=== PATIENT | female | born 1960 | race Caucasian/White ===

== ENCOUNTER 2018-10-05 18:00 | Emergency (ER) | payer OTHER, MEDICARE ==
[~2018-10-05] VITALS: Ht 160 cm; Wt 63.5 kg
[~2018-10-05 18:00] MED LIST: ASPIR 8181 MG PO; CLEOCIN HCL150 MG PO; KEFLEX500 MG PO; SYNTHROID150 MCG PO; ULTRAM50 MG PO
--- OUTSIDE RECORDS SUMMARY | 2018-10-05 18:03 | XMS REPORT | Clinical Summary ---
Author Author [facility] Address Unknown Phone Unavailable Care Team Providers Care Clay Modeler Name Role Phone Fiona Hadley MD PCP Allergies Comments Active Allergy Reactions Severity Noted Date Codeine 11/23/2017 Sulfa (Sulfonamide 11/23/2017 Antibiotics) Vancomycin 11/23/2017 Medications End Date Status Medication Sig Dispensed Refills Start Date Active cyclobenzaprine Take 5 mg by 0 (FLEXERIL) 5 mg tablet mouth as needed for muscle spasms. Active levothyroxine (SYNTHROID) Take 112 mcg 0 112 mcg tablet by mouth every morning. Active amoxicillin (AMOXIL) 500 Take 500 mg 0 MG capsule by mouth 3 (three) times a day. Active estradiol (ESTRACE) 0.5 Take 0.5 mg 0 MG tablet by mouth daily. Active linaclotide (LINZESS) 145 Take 1 30 capsule 11 mcg capsule capsule (145 8 mcg total) by mouth daily before breakfast. 01/29/2019 Active omeprazole (PriLOSEC) 20 Take 1 30 capsule 5 MG capsule capsule (20 8 mg total) by mouth daily. 01/29/2018 Discontinued pantoprazole (PROTONIX) Take 20 mg by 0 20 MG EC tablet mouth daily. 11/23/2017 Discontinued lubiprostone (AMITIZA) 8 Take 8 mcg by 0 MCG capsule mouth 2 (two) times a day with meals. 11/27/2017 Discontinued linaclotide (LINZESS) 145 Take 1 8 capsule 0 201 mcg capsule capsule (145 8 mcg total) by mouth daily before breakfast. 01/29/2018 Discontinued linaclotide (LINZESS) 145 Take 1 30 capsule 11 201 mcg capsule capsule (145 8 mcg total) by mouth daily before breakfast. 01/29/2018 Discontinued omeprazole (PriLOSEC) 40 TK 1 C PO QD 3 01/04/201 MG capsule 8 Active Problems Not on file Encounters Care Team Description Date Type Specialty Miriam Beard MD Outside GI records 09/28/2018 Documentation Gastroenterology Miriam Beard MD Kooi, Kari, KARLENE Bloating 02/27/2018 Consult Weight Management Miriam Beard MD Chronic idiopathic constipation (Primary Dx); Bloating; Polyp of colon, unspecified part of colon, unspecified type; Pernicious anemia; Irritable bowel syndrome with constipation 01/29/2018 Office Visit Gastroenterology Naomi Sheth MA Bloating (Primary Dx) 01/29/2018 Orders Only Gastroenterology Miriam Beard MD 01/02/2018 Telephone GastroenterMiriam Ruth MD 12/13/2017 Telephone Gastroenterology Claudine Ballesteros LVN 12/04/2017 Telephone Miriam Whiting MD 11/27/2017 Lab Lab Miriam Beard MD EGD 11/27/2017 Documentation Miriam Whiting MD 11/27/2017 Orders Only Gastroenterology Naomi Sheth MA 11/24/2017 Telephone Gastroenterology Miriam Beard MD 11/24/2017 Telephone Gastroenterology Miriam Beard MD Bloating (Primary Dx); Chronic idiopathic constipation; Polyp of colon, unspecified part of colon, unspecified type; Irritable bowel syndrome with constipation; Pernicious anemia 11/23/2017 Office Visit Gastroenterology after 10/04/2017 Family History Medical History Relation Name Comments Pancreatitis Brother Cirrhosis Mother Colon polyps Mother Irritable bowel syndrome Mother Liver disease Mother Colon cancer Neg Hx Relation Name Status Comments Brother Mother Social History Date Tobacco Use Types Packs/Day Years Used Never Smoker Smokeless Tobacco: Never Used Alcohol Use Drinks/Week oz/Week Comments No Sex Assigned at Date Recorded Not on file Industry Job Start Date Occupation Not on file Not on file Not on file Travel End Travel History Travel Start No recent travel history available. Last Filed Vital Signs Time Taken Vital Sign Reading 01/29/2018 2:21 PM CDT Blood Pressure 123/78 01/29/2018 2:21 PM CDT Pulse 87 01/29/2018 2:21 PM CDT Temperature 36.7 C (98 F) - Respiratory Rate - - Oxygen Saturation - - Inhaled Oxygen - Concentration 02/27/2018 11:03 AM CDT Weight 66.9 kg (147 lb 8 oz) 02/27/2018 11:03 AM CDT Height 160 cm (5' 3") 02/27/2018 11:03 AM CDT Body Mass Index 26.13 Plan of Treatment Health Maintenance Due Date Last Done Comments CERVICAL CANCER SCREENING 1981 BREAST CANCER SCREENING 2010 COLON CANCER SCREENING 2010 SHINGLES VACCINES (#1) 2010 INFLUENZA VACCINE 01/17/2019 Procedures Comments Procedure Name Priority Date/Time Associated Diagnosis SURGICAL PATHOLOGY Routine 11/27/2017 REQUEST 12:19 PM CDT after 10/04/2017 Results * Surgical pathology request (11/27/2017 12:19 PM CDT) [facility] DEPARTMENT OF PATHOLOGY AND GENOMIC MEDICINE Surgical pathology report See link below for PDF Lab [facility] DEPARTMENT OF Report PATHOLOGY AND GENOMIC MEDICINE Result status This is Final Report to [facility] DEPARTMENT OF [id number] PATHOLOGY AND GENOMIC MEDICINE Performing Organization Address City/State/Zipcode Phone Number [facility] DEPARTMENT OF [address] [place] [address] PATHOLOGY AND GENOMIC MEDICINE after 10/04/2017 Insurance Payer Benefit Subscriber ID Type Phone Address Plan / Group CIGNA CIGNA OPEN xxxxxxxxxxx HMO ACCESS/NET WORK MEDICARE MEDICARE xxxxxxxxxx Medicare [place], [place] PART A AND B Advance Directives Patient has advance care planning documents on file. For more information, isamar parker contact: Tommie Barrera [address] [place] [address]
--- OUTSIDE RECORDS SUMMARY | 2018-10-05 18:03 | XMS REPORT | Clinical Summary ---
Author Author [facility] Organization [facility] Address Unknown Phone Unavailable Care Team Providers Care Supervisor Throwing Department Name Role Phone Sharpless PCP Allergies Not on File Medications Not on file Active Problems Not on file Social History Date Tobacco Use Types Packs/Day Years Used Never Assessed Sex Assigned at Date Recorded Not on file Industry Job Start Date Occupation Not on file Not on file Not on file Travel End Travel History Travel Start No recent travel history available. Last Filed Vital Signs Not on file Plan of Treatment Not on file Results Not on fileafter 10/04/2017 Insurance Payer Benefit Subscriber ID Type Phone Address Plan / Group MEDICARE MEDICARE A xxxxxxxxxx Medicare B CIGNA - [place] CARE CIGNA xxxxxxxxxxx HMO/POS HMO/POS/OP EN ACCESS MEDICAID - MEDICAID [place] MEDICAID xxxxxxxxx Medicaid CARE [facility] Contracted HEALTH CHOICE
--- OUTSIDE RECORDS SUMMARY | 2018-10-05 18:03 | XMS REPORT ---
[facility] Address Unknown Phone Unavailable Care Team Providers Care Strategic Planning Analyst Name Role Phone Unavailable Unavailable Payers Payer Name Policy Type Policy Number Effective Date Expiration Date Problems This patient has no known problems. Allergies, Adverse Reactions, Alerts Allergy Name Allergy Type Status Severity Reaction(s) Onset Date Inactive Date Treating Clinician Comments Sulfa (Sulfonamide Antibiotics) DA Active 2018-01-19 00:00:00 codeine DA Active SV 2018-01-19 00:00:00 minocycline DA Active SV 2018-01-19 00:00:00 Medications This patient has no known medications. 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 A physiologic amount of joint fluid is present without evidence for a loose body. COMMENT: COMPARISON: No prior exams available. Scans were performed in the sagittal, axial and coronal planes utilizing T1, spin density with fat saturation and T2- weighted pulse sequences. Bony and hyaline cartilage abnormality is present as noted. There is degenerative signal in the posterior horn the medial meniscus without evidence for tear. The anterior horn the medial meniscus and the lateral meniscus are within normal limits in appearance. No abnormality is seen involving the anterior or posterior cruciate or medial or lateral collateral ligaments. There is distal quadriceps tendinosis without a tear. The patellar tendon is within normal limits in appearance. at 0803 Reported and signed by: Ronaldo Serrato MD CC: Brian Ascencio MD Technologist: Patricia Bird(R) Transcribed D/ (08) [facility] NAME: JOY MORIN [address] [facility] PHYS: [email or web address] - Brian Ascencio : 1960 AGE: 57 SEX: F [place] [phone] LOC: Y.MRI PHONE #: [phone] EXAM DATE: 08/10/2018 STATUS: DEP CLI FAX #: [phone] RAD #: D/C DT PAGE 1 Signed Report Patient Name: JOY MORIN RUDDY Unit No: [id number] EXAMS: CPT CODE: [id number] MRI LW JNT W/[place] [address] <Continued> Orig Print D/T: S: 0 08/13/2018 (0807) [facility] NAME: JOY MORIN [address] [facility] PHYS: [email or web address] - Brian Ascencio : 1960 AGE: 57 SEX: F [place] [phone] LOC: Y.MRI PHONE #: EXAM DATE: 08/10/2018 STATUS: DEP CLI FAX #: [phone] RAD #: D/C DT PAGE 2 Signed Report
[2018-10-05] MEDS ORDERED: NEOMYCIN/POLYMYX/BACITR OINT 0.9 GM PKT ONE (19:36)
[2018-10-05] MEDS ORDERED: TETANUS/DIPHTHERIA TOX ADULT 0.5 ML SYR ONE (19:37)
[2018-10-05] MEDS ORDERED: TETANUS/DIPHTHERIA TOX ADULT 0.5 ML SYR IM NR (19:45)
[2018-10-05] MEDS ORDERED: NEOMYCIN/POLYMYX/BACITR OINT 0.9 GM PKT TOP STA (19:46)
[2018-10-05] MEDS ORDERED: LIDOCAINE 1% W/EPINEPHRINE 20 ML VIAL ONE (19:46)
[2018-10-05] MEDS ORDERED: LIDOCAINE 2%/ EPINEPHRINE 20ML MDV INJ STA (19:46)
[2018-10-05] MEDS ORDERED: LIDOCAINE 1% W/EPINEPHRINE 20 ML VIAL INJ STA (19:47)
--- NOTE | 2018-10-05 20:01 | Diagnostic Imaging Report ---
History:Hit the head with pain. Comparison studies: CT head report 10/04/2013 Technique: Axial images were obtained from the skull base to the vertex. Coronal and sagittal reconstructions obtained from the axial data. Dose modulation, iterative reconstruction, and/or weight based adjustment of the mA/kV was utilized to reduce the radiation dose to as low as reasonably achievable. Findings: Scalp/skull: No abnormalities. No fractures, blastic or lytic lesions. Extra-axial spaces: No masses. No fluid collections. Brain sulci: Appropriate for age. Ventricles: Normal in size and configuration. No hydrocephalus. Parenchyma: No abnormal densities. No masses, hemorrhage, acute or chronic cortical vascular insults. Sellar/suprasellar region: No abnormalities Craniocervical junction: Patent foramen magnum. No Chiari one malformation. IMPRESSION: No abnormalities . Signed by: DR Edi Molina M.D. on 10/05/2018 7:58 PM
[2018-10-05] MEDS ORDERED: IBUPROFEN 600 MG TAB PO STA (20:06)
== END 2018-10-05 20:42 | disposition home or self-care (01) ==
LOC: ER 18:00
DX: S01.01XA Laceration without foreign body of scalp, initial encounter (principal); W20.8XXA Other cause of strike by thrown, projected or falling object, initial encounter; Y92.89 Other specified places as the place of occurrence of the external cause; E03.9 Hypothyroidism, unspecified; Z79.82 Long term (current) use of aspirin; Z23 Encounter for immunization
CPT/HCPCS: 70450; 90471; 90714; 99284

== ENCOUNTER 2020-02-18 08:45 | Emergency (ER) | payer OTHER, MEDICARE ==
[~2020-02-18] VITALS: Ht 160 cm; Wt 63.0 kg
--- OUTSIDE RECORDS SUMMARY | 2020-02-18 08:59 | XMS REPORT | Clinical Summary ---
Author Author [facility] Organization [facility] Address Unknown Phone Unavailable Care Team Providers Care Puff Ironer Name Role Phone Fiona Hadley MD PCP Allergies Comments Active Allergy Reactions Severity Noted Date Codeine 11/23/2017 Sulfa (Sulfonamide 11/23/2017 Antibiotics) Vancomycin 11/23/2017 Medications End Date Status Medication Sig Dispensed Refills Start Date Active cyclobenzaprine Take 5 mg by 0 (FLEXERIL) 5 mg tablet mouth as needed for muscle spasms. Active estradiol (ESTRACE) 0.5 Take 0.5 mg 0 MG tablet by mouth daily. Active SYNTHROID 150 mcg tablet TK 1 T PO QAM 1 12/17 9 Active cyanocobalamin, vitamin Inject 1,000 0 B-12, 1,000 mcg/mL kit mcg as directed every 28 days. Active linaCLOtide (LINZESS) 145 Linzess 145 90 capsule 3 mcg capsule mcg capsule 9 01/21/2020 sucralfate (CARAFATE) 1 Take 1 tablet 120 tablet 3 gram tablet (1 g total) 9 by mouth 4 (four) times a day. Active Problems Not on file Encounters Care Team Description Date Type Specialty Miriam Beard MD Kooi, Kari, KARLENE Irritable bowel syndrome with constipati on 03/25/2019 Consult Weight Management after 02/17/2019 Family History Medical History Relation Name Comments Pancreatitis Brother Cirrhosis Mother Colon polyps Mother Irritable bowel syndrome Mother Liver disease Mother Colon cancer Neg Hx Relation Name Status Comments Brother Mother Social History Date Tobacco Use Types Packs/Day Years Used Never Smoker Smokeless Tobacco: Never Used Drinks/Week oz/Week Comments Alcohol Use No Sex Assigned at Date Recorded Not on file Industry Job Start Date Occupation Not on file Not on file Not on file Travel End Travel History Travel Start No recent travel history available. Last Filed Vital Signs Reading Time Taken Comments Vital Sign - - Blood Pressure - - Pulse - - Temperature - - Respiratory Rate - - Oxygen Saturation - - Inhaled Oxygen Concentration 68.9 kg (152 lb) 03/25/2019 2:02 PM CDT Weight 160 cm (5' 3") 03/25/2019 2:02 PM CDT Height 26.93 03/25/2019 2:02 PM CDT Body Mass Index Plan of Treatment Health Maintenance Due Date Last Done Comments CERVICAL CANCER SCREENING 1981 BREAST CANCER SCREENING 2010 COLONOSCOPY SCREENING 2010 SHINGLES VACCINES (#1) 2010 INFLUENZA VACCINE 03/19/2020 Results Not on fileafter 02/17/2019 Insurance Type Payer Benefit Subscriber ID Effective Phone Address Plan / Dates Group HMO CIGNA CIGNA OPEN xxxxxxxxxxx 2003- ACCESS/NET Present WORK Medicare MEDICARE MEDICARE xxxxxxxxxx 2002- [place], PART A AND Present [place] B Advance Directives For more information, please contact: [phone] Patient Planning And Analysis Manager Explanation Type Date Recorded Advance Directives, Living Will and Medical Power of Museum Security Chief
[2020-02-18] MEDS ORDERED: CLINDAMYCIN PHOS 600 MG/ 4 ML VIAL IM NR (09:00)
--- OUTSIDE RECORDS SUMMARY | 2020-02-18 09:00 | XMS REPORT | Continuity of Care Document ---
Author Author [facility] t Organization [facility] Address [address] [place] [id number] Phone Unavailable Care Team Providers Care Stove Refinisher Name Role Phone NO, PCP PCP Unavailable Yuriy Beard MD Attphys Yasmin Starr RD Attphys Unavailable Blanca DÍAZ, Rashad Attphys Saud CAMEJO Attphys Unavailable Payers Payer Name Policy Type Policy Number Effective Date Expiration Date S roger CIGFIDENCIO OPEN ACCESS/NETWORKxxxxxxxxxxx1-[facility] [place]00 [facility] MEDICAREMEDICARE PART A AND Piezmxiypcv2002-[place] 2002 00:00:00 [facility] [id number] 2018 00:00:00 [facility] Cigna Hmo [id number] 2018 00:00:00 [facility] Medicare A & B [id number] 2002 00:00:00 [facility] Problems This patient has no known problems. Allergies, Adverse Reactions, Alerts Allergy Name Allergy Type Status Severity Reaction(s) Onset Date Inacti ve Date Treating Clinician Comments Source Sulfa (Sulfonamide Antibiotics) Allergy to Substance Active Mild 2018-10-05 00:00:00 [facility] Vancomycin Allergy to Substance Active Mild HEAD ITCHING 2018-10-05 00:00:00 [facility] Sulfa (Sulfonamide Antibiotics) DA Active SV 2018-01-19 00 :00:00 [facility] codeine DA Active SV 2018-01-19 00:00:00 [facility] minocycline DA Active SV 2018-01-19 00:00:00 [facility] Codeine Propensity to adverse reactions to drug Active 2017-11-23 00:00:00 Tommie Barrera Sulfa (Sulfonamide Antibiotics) Propensity to adverse reactions to drug Active 2017-11-23 00:00:00 Mehnaz Barrera Vancomycin Propensity to adverse reactions to drug Active 2017-11-23 00:00:00 Tommie Cardenas t Codeine Allergy to Substance Active 2016-11-07 00:00:00 [facility] Family History Family Member Diagnosis Comments Start Date Stop Date Source Natural brother Pancreatitis Tommie Barrera Natural mother Cirrhosis [facility] thodist Natural mother Colon polyps Tommie Barrera Natural mother Irritable bowel syndrome Tommie Barrera Natural mother Liver disease Tommie Barrera Family member Colon cancer [facility] ethodist Social History Social Habit Start Date Stop Date Quantity Comments Source Sex Assigned At Danilo gould Bruce Alcohol intake 2019-01-17 00:00:00 2019-01-17 00:00:00 Current non-drinker of alcohol (finding) Tommie Barrera Smoking Status Start Date Stop Date Source Never smoker Tommie nunez Medications Ordered Medication Name Filled Medication Name Start Date Stop Da te Current Medication? Ordering Clinician Indication Dosage Frequency Signature (SIG) Comments Components Source sucralfate (CARAFATE) 1 gram tablet 2019-01-21 00:00:0 0 2020-01-21 23:59:00 No 1g Q.25D Take 1 tablet (1 g total) by mouth 4 (fo ur) times a day. Tommie Barrera cyanocobalamin, vitamin B-12, 1,000 mcg/mL kit 2019-01-17 15:12: 34 Yes 1000ug Q28D Inject 1,000 mcg as directed every 28 days. Tommie Barrera cyclobenzaprine (FLEXERIL) 5 mg tablet 2019-01-17 15:09:10 Yes 5mg Take 5 mg by mouth as needed for muscle spasms. Tommie Barrera estradiol (ESTRACE) 0.5 MG tablet 2019-01-17 15:09:10 Yes .5mg QD Take 0.5 mg by mouth daily. Tommie Barrera linaCLOtide (LINZESS) 145 mcg capsule 2019-01-17 00:00:00 Y es Linzess 145 mcg capsule Tommie nunez SYNTHROID 150 mcg tablet 2018-12-17 00:00:00 Yes TK 1 T PO QAM Tommie Barrera Aspirin (Aspir 81) 81 Mg Tablet. Aspirin (Aspir 81) 81 Mg Tablet. Yes 81 Daily [facility] Cephalexin Monohydrate (Keflex) 500 Mg Capsule Cephale keyonna Monohydrate (Keflex) 500 Mg Capsule Yes 500 Every 6 Hours [facility] Clindamycin Hcl (Cleocin Hcl) 150 Mg Capsule Clindamyc in Hcl (Cleocin Hcl) 150 Mg Capsule Yes 600 Every 8 Hours [facility] Levothyroxine Sodium (Synthroid) 150 Mcg Tablet Levoth yroxine Sodium (Synthroid) 150 Mcg Tablet Yes 150 Daily [facility] Tramadol Hcl (Ultram) 50 Mg Tablet Tramadol Hcl (Ultram) 50 Mg Tablet Yes 50 Every 8 Hours [facility] Vital Signs Vital Name Observation Time Observation Value Comments Source Body height 2019-03-25 14:02:00 160 cm Tommie Barrera Body weight 2019-03-25 14:02:00 68.947 kg Tommie Barrera BMI 2019-03-25 14:02:00 26.93 kg/m2 Tommie Barrera Procedures Procedure Date / Time Performed Performing Clinician [facility] e Computed tomography of brain without radiopaque contrast 201 02-20-19 00:00:00 NADEEM CAMPOS [facility] Plan of Care Planned Activity Planned Date Details Comments Source Future Scheduled Test 2020-03-19 00:00:00 INFLUENZA VACCINE [code = INFLUENZA VACCINE] Tommie Barrera Future Scheduled Test 2010 00:00:00 BREAST CANCER SCRE ENING [code = BREAST CANCER SCREENING] Tommie Barrera Future Scheduled Test 2010 00:00:00 COLONOSCOPY SCREEN ING [code = COLONOSCOPY SCREENING] Tommie Barrera Future Scheduled Test 2010 00:00:00 SHINGLES VACCINES (#1) [code = SHINGLES VACCINES (#1)] Tommie Barrera Future Scheduled Test 1981 00:00:00 Screening for jared gnant neoplasm of cervix (procedure) [code = 773503506] Tommie nunez Encounters Start Date/Time End Date/Time Encounter Type Admission Type [facility] Care Department Encounter ID Source 2019-02-20 12:46:40 2019-02-20 13:01:40 Office Visit Rashad Singh [facility] [id number] 2018-10-05 18:00:00 2018-10-05 20:42:00 Departed Emergency Room 1 RADHA CAMEJO [facility] [id number] [facility] Results Test Description Test Time Test Comments Results Result Comments Source POC Glucose 2019-04-03 12:22:44 Test Item Glucose POC (test code = Glucose POC) 90 mg/dL 70-115 Notify RN or MDIf you consider your patient critically ill, the Joaquin-Accu Check Infrom II meter should not be used for Glucose determination. Draw a venous Glucose and send to the main Lab for analysis. Hemoglobin [id number] 07:02:12* Test Item Value Reference Range Interpretation Comments Hemoglobin A1c (test code = Hemoglobin A1c) 5.5 % 4.8-5.9 Non Diabetic 4.8- 5.9%Diabetic <7.0% Complete Blood Count without [id number] 06:42:53* Test Item Value Reference Range Interpretation Comments WBC (test code = WBC) 6.3 x10 4.4-10.5 RBC (test code = RBC) 4.57 x10 3.75-5.20 Hgb (test code = Hgb) 12.0 g/dL 12.2-14.8 L Hct (test code = Hct) 36.7 % 36.5-44.4 MCV (test code = MCV) 80.30 fL 80.00-100.00 MCH (test code = MCH) 26.3 pg 27.0-32.5 L MCHC (test code = MCHC) 32.70 g/dL 32.00-37.50 RDW CV (test code = RDW CV) 14.4 % 11.5-14.5 Platelets (test code = Platelets) 306.0 x10 140.0-440.0 MPV (test code = MPV) 10.3 fL N nRBC (test code = nRBC) 0 N NRBC Abs (test code = NRBC Abs) 0.00 x10 N IPF (test code = IPF) 0 % N Basic Metabolic [id number] 06:36:48* Test Item Value Reference Range Interpretation Comments Sodium Level (test code = Sodium Level) 141.0 mmol/L 135.0-145.0 Potassium Level (test code = Potassium Level) 4.1 mmol/L 3.5-5.1 Chloride Level (test code = Chloride Level) 102 mmol/L 98-105 CO2 (test code = CO2) 25 mmol/L 22-29 Anion Gap (test code = Anion Gap) 14 mmol/L 7-16 BUN (test code = BUN) 10.20 mg/dL 6.00-20.00 Creatinine Level (test code = Creatinine Level) 0.70 mg/dL 0.50-0 .90 BUN/Creat Ratio (test code = BUN/Creat Ratio) 15 N Glucose Level (test code = Glucose Level) 105 mg/dL 70-115 Calcium Level (test code = Calcium Level) 9.0 mg/dL 8.3-10.5 Basic Metabolic [id number] 06:36:48* Test Item Value Reference Range Interpretation Comments Sodium Level (test code = Sodium Level) 141.0 mmol/L 135.0-145.0 Potassium Level (test code = Potassium Level) 4.1 mmol/L 3.5-5.1 Chloride Level (test code = Chloride Level) 102 mmol/L 98-105 CO2 (test code = CO2) 25 mmol/L 22-29 Anion Gap (test code = Anion Gap) 14 mmol/L 7-16 BUN (test code = BUN) 10.20 mg/dL 6.00-20.00 Creatinine Level (test code = Creatinine Level) 0.70 mg/dL 0.50-0 .90 BUN/Creat Ratio (test code = BUN/Creat Ratio) 15 N Glucose Level (test code = Glucose Level) 105 mg/dL 70-115 Calcium Level (test code = Calcium Level) 9.0 mg/dL 8.3-10.5 eGFR AA (test code = eGFR AA) >60 mL/min/1.73 m2 N eGFR (estimated Glomerular Filtration Rate) is an estimated value, calculated from the patient's serum creatinine using the MDRD equation. It is NOT the patient's actual GFR. The eGFR provides a more clinically useful measure of kidney disease than serum creatinine alone.This calculation takes sex and race into account, if the information is provided. If the race is not provided, and the patient is -Citizen Of [place], multiply by 1.212. If sex is not provided, and the patient is female, multiply by 0.742. Results for patients <18 years of age have not been validated by the MDRD study and should be interpreted with caution. eGFR Result Interpretation:eGFR > or = 60 is in the Normal RangeeGFR < 60 may mean kidney diseaseeGFR < 15 may mean kidney failure Ranges recommended by the National Kidney Foundation, http://nkdep.nih.gov Basic Metabolic [id number] 06:36:48* Test Item Value Reference Range Interpretation Comments Sodium Level (test code = Sodium Level) 141.0 mmol/L 135.0-145.0 Potassium Level (test code = Potassium Level) 4.1 mmol/L 3.5-5.1 Chloride Level (test code = Chloride Level) 102 mmol/L 98-105 CO2 (test code = CO2) 25 mmol/L 22-29 Anion Gap (test code = Anion Gap) 14 mmol/L 7-16 BUN (test code = BUN) 10.20 mg/dL 6.00-20.00 Creatinine Level (test code = Creatinine Level) 0.70 mg/dL 0.50-0 .90 BUN/Creat Ratio (test code = BUN/Creat Ratio) 15 N Glucose Level (test code = Glucose Level) 105 mg/dL 70-115 Calcium Level (test code = Calcium Level) 9.0 mg/dL 8.3-10.5 eGFR AA (test code = eGFR AA) >60 mL/min/1.73 m2 N eGFR (estimated Glomerular Filtration Rate) is an estimated value, calculated from the patient's serum creatinine using the MDRD equation. It is NOT the patient's actual GFR. The eGFR provides a more clinically useful measure of kidney disease than serum creatinine alone.This calculation takes sex and race into account, if the information is provided. If the race is not provided, and the patient is -Citizen [place], multiply by 1.212. If sex is not provided, and the patient is female, multiply by 0.742. Results for patients <18 years of age have not been validated by the MDRD study and should be interpreted with caution. eGFR Result Interpretation:eGFR > or = 60 is in the Normal RangeeGFR < 60 may mean kidney diseaseeGFR < 15 may mean kidney failure Ranges recommended by the National Kidney Foundation, http://nkdep.nih.gov eGFR Non-AA (test code = eGFR Non-AA) >60.00 mL/min/1.73 m2 N eGFR (estimated Glomerular Filtration Rate) is an estimated value, calculated from the patient's serum creatinine using the MDRD equation. It is NOT the patient's actual GFR. The eGFR provides a more clinically useful measure of kidney disease than serum creatinine alone.This calculation takes sex and race into account, if the information is provided. If the race is not provided, and the patient is -Citizen [place], multiply by 1.212. If sex is not provided, and the patient is female, multiply by 0.742. Results for patients <18 years of age have not been validated by the MDRD study and should be interpreted with caution. eGFR Result Interpretation:eGFR > or = 60 is in the Normal RangeeGFR < 60 may mean kidney diseaseeGFR < 15 may mean kidney failure Ranges recommended by the National Kidney Foundation, http://nkdep.nih.gov MRA Brain/Head w/o [id number] 03:13:55Patient: JOY MORIN RUDDY Date/Time04/03/2019 02:02 CDTReason for ExamStrokeReportExam: MRA head without contrastLocation: H 12HISTORY: StrokeTechnique: MRA of the cerebral vasculature was performed utilizing 3-D TOF.Findings:The carotid siphons are unremarkable. The anterior and middle circulations are normal. No aneurysm or stenosis is seen. There is good visualization of the distal small vessels.The vertebrobasilar system is unremarkable. No aneurysm or stenosis is seen. There is good visualization of the distal small vessels.Impression:Unremarkable exam. Final Dictated by: MD Vaughan Francesco MDictated DT/TM: 04/03/2019 3:12 amSigned by: MD Vaughan Francesco MSigned (Electronic Signature): 04/03/2019 3:13 amMRA Neck w/o [id number] 03:12:03Patient: JOY MORIN Date/Time04/03/2019 02:02 CDTReason for ExamCVA (Stroke)ReportExam: MRA neck without contrastLocation: H 12HISTORY: CVA (Stroke)Technique: MRA of the neck was performed utilizing 2-D TOF.Findings:Both common carotid arteries, both bulbs and the visualized internal carotid arteries are unremarkable. No stenosis is seen.Antegrade flow seen in both vertebral arteries.Impression:Unremarkable exam. Final Dictated by: MD Vaughan Francesco MDictated DT/TM: 04/03/2019 3:10 amSigned by: MD Vaughan Francesco MSigned (Electronic Signature): 04/03/2019 3:12 amMRI Brain w/o [id number] 03:10:02Patient: JOY MORIN Date/Time04/03/2019 02:02 CDTReason for ExamStroke;CVA (Stroke)ReportExam: MRI brain without contrast.Location: H 12HISTORY: StrokeTechnique: Multiplanar multisequence images of the brain were obtained.Findings:No acute intracranial abnormality is identified. The brain parenchyma and the CSF spaces are normal. No mass, midline shift, hemorrhage, hydrocephalus or edema is seen. The diffusion images are normal. No restricted diffusion is seen. The bony calvarium is intact. The visualized paranasal sinuses are clear. The mastoid air cells are well pneumatized.Impression:No acute intracranial abnormality. Final Dictated by: MD Vaughan Francesco MDictated DT/TM: 04/03/2019 3:09 amSigned by: MD Vaughan Francesco MSigned (Electronic Signature): 04/03/2019 3:10 amPartial Thromboplastin Time 2019-04-02 14:47:05* Test Item Value Reference Range Interpretation Comments Partial Thromboplastin Time (test code = Partial Throm boplastin Time) 32.20 seconds 24.39-37.25 Prothrombin Time and [id number] 14:47:04* Test Item Value Reference Range Interpretation Comments Prothrombin Time (test code = Prothrombin Time) 11.1 seconds 9.8-13 .4 INR (test code = INR) 1.0 ratio 0.6-1.2 Urinalysis with Culture, if [id number] 14:32:34* Test Item Value Reference Range Interpretation Comments UA Color (test code = UA Color) STRAW Yellow UA Appear (test code = UA Appear) CLEAR Clear UA pH (test code = UA pH) 5 N UA Spec Grav (test code = UA Spec Grav) 1.005 1.001-1.035 UA Glucose (test code = UA Glucose) NEG Negative UA Bili (test code = UA Bili) NEG Negative UA Ketones (test code = UA Ketones) NEG Negative UA Blood (test code = UA Blood) NEG Negative UA Protein (test code = UA Protein) NEG Negative UA Urobilinogen (test code = UA Urobilinogen) 0.2 mg/dL N UA Nitrite (test code = UA Nitrite) NEG Negative UA Leuk Est (test code = UA Leuk Est) NEG Negative UA Micro Ind? (test code = UA Micro Ind?) Not Indicated Not Indicat ed Result created by rule GL_SJM_UA_MICRO_IND Comprehensive Metabolic [id number] 14:29:34* Test Item Value Reference Range Interpretation Comments Sodium Level (test code = Sodium Level) 140.0 mmol/L 135.0-145.0 Potassium Level (test code = Potassium Level) 3.9 mmol/L 3.5-5.1 Chloride Level (test code = Chloride Level) 102 mmol/L 98-105 CO2 (test code = CO2) 25 mmol/L 22-29 Anion Gap (test code = Anion Gap) 13 mmol/L 7-16 BUN (test code = BUN) 10.50 mg/dL 6.00-20.00 Creatinine Level (test code = Creatinine Level) 0.70 mg/dL 0.50-0 .90 BUN/Creat Ratio (test code = BUN/Creat Ratio) 15 N Glucose Level (test code = Glucose Level) 98 mg/dL 70-115 Calcium Level (test code = Calcium Level) 9.6 mg/dL 8.3-10.5 Alk Phos (test code = Alk Phos) 112 U/L 35-104 H Bilirubin Total (test code = Bilirubin Total) 0.3 mg/dL 0.1-0.9 Albumin Level (test code = Albumin Level) 4.7 g/dL 3.5-5.2 Protein Total (test code = Protein Total) 8.1 g/dL 6.4-8.3 ALT (test code = ALT) 21 U/L 1-33 AST (test code = AST) 21 U/L 1-32 Globulin (test code = Globulin) 3.4 g/dL 2.9-3.1 H A/G Ratio (test code = A/G Ratio) 1.4 ratio N Comprehensive Metabolic [id number] 14:29:34* Test Item Value Reference Range Interpretation Comments Sodium Level (test code = Sodium Level) 140.0 mmol/L 135.0-145.0 Potassium Level (test code = Potassium Level) 3.9 mmol/L 3.5-5.1 Chloride Level (test code = Chloride Level) 102 mmol/L 98-105 CO2 (test code = CO2) 25 mmol/L 22-29 Anion Gap (test code = Anion Gap) 13 mmol/L 7-16 BUN (test code = BUN) 10.50 mg/dL 6.00-20.00 Creatinine Level (test code = Creatinine Level) 0.70 mg/dL 0.50-0 .90 BUN/Creat Ratio (test code = BUN/Creat Ratio) 15 N Glucose Level (test code = Glucose Level) 98 mg/dL 70-115 Calcium Level (test code = Calcium Level) 9.6 mg/dL 8.3-10.5 Alk Phos (test code = Alk Phos) 112 U/L 35-104 H Bilirubin Total (test code = Bilirubin Total) 0.3 mg/dL 0.1-0.9 Albumin Level (test code = Albumin Level) 4.7 g/dL 3.5-5.2 Protein Total (test code = Protein Total) 8.1 g/dL 6.4-8.3 ALT (test code = ALT) 21 U/L 1-33 AST (test code = AST) 21 U/L 1-32 Globulin (test code = Globulin) 3.4 g/dL 2.9-3.1 H A/G Ratio (test code = A/G Ratio) 1.4 ratio N eGFR AA (test code = eGFR AA) >60 mL/min/1.73 m2 N eGFR (estimated Glomerular Filtration Rate) is an estimated value, calculated from the patient's serum creatinine using the MDRD equation. It is NOT the patient's actual GFR. The eGFR provides a more clinically useful measure of kidney disease than serum creatinine alone.This calculation takes sex and race into account, if the information is provided. If the race is not provided, and the patient is -Citizen [place], multiply by 1.212. If sex is not provided, and the patient is female, multiply by 0.742. Results for patients <18 years of age have not been validated by the MDRD study and should be interpreted with caution. eGFR Result Interpretation:eGFR > or = 60 is in the Normal RangeeGFR < 60 may mean kidney diseaseeGFR < 15 may mean kidney failure Ranges recommended by the National Kidney Foundation, http://nkdep.nih.gov Comprehensive Metabolic [id number] 14:29:34* Test Item Value Reference Range Interpretation Comments Sodium Level (test code = Sodium Level) 140.0 mmol/L 135.0-145.0 Potassium Level (test code = Potassium Level) 3.9 mmol/L 3.5-5.1 Chloride Level (test code = Chloride Level) 102 mmol/L 98-105 CO2 (test code = CO2) 25 mmol/L 22-29 Anion Gap (test code = Anion Gap) 13 mmol/L 7-16 BUN (test code = BUN) 10.50 mg/dL 6.00-20.00 Creatinine Level (test code = Creatinine Level) 0.70 mg/dL 0.50-0 .90 BUN/Creat Ratio (test code = BUN/Creat Ratio) 15 N Glucose Level (test code = Glucose Level) 98 mg/dL 70-115 Calcium Level (test code = Calcium Level) 9.6 mg/dL 8.3-10.5 Alk Phos (test code = Alk Phos) 112 U/L 35-104 H Bilirubin Total (test code = Bilirubin Total) 0.3 mg/dL 0.1-0.9 Albumin Level (test code = Albumin Level) 4.7 g/dL 3.5-5.2 Protein Total (test code = Protein Total) 8.1 g/dL 6.4-8.3 ALT (test code = ALT) 21 U/L 1-33 AST (test code = AST) 21 U/L 1-32 Globulin (test code = Globulin) 3.4 g/dL 2.9-3.1 H A/G Ratio (test code = A/G Ratio) 1.4 ratio N eGFR AA (test code = eGFR AA) >60 mL/min/1.73 m2 N eGFR (estimated Glomerular Filtration Rate) is an estimated value, calculated from the patient's serum creatinine using the MDRD equation. It is NOT the patient's actual GFR. The eGFR provides a more clinically useful measure of kidney disease than serum creatinine alone.This calculation takes sex and race into account, if the information is provided. If the race is not provided, and the patient is -Citizen [place], multiply by 1.212. If sex is not provided, and the patient is female, multiply by 0.742. Results for patients <18 years of age have not been validated by the MDRD study and should be interpreted with caution. eGFR Result Interpretation:eGFR > or = 60 is in the Normal RangeeGFR < 60 may mean kidney diseaseeGFR < 15 may mean kidney failure Ranges recommended by the National Kidney Foundation, http://nkdep.nih.gov eGFR Non-AA (test code = eGFR Non-AA) >60.00 mL/min/1.73 m2 N eGFR (estimated Glomerular Filtration Rate) is an estimated value, calculated from the patient's serum creatinine using the MDRD equation. It is NOT the patient's actual GFR. The eGFR provides a more clinically useful measure of kidney disease than serum creatinine alone.This calculation takes sex and race into account, if the information is provided. If the race is not provided, and the patient is -Citizen [place], multiply by 1.212. If sex is not provided, and the patient is female, multiply by 0.742. Results for patients <18 years of age have not been validated by the MDRD study and should be interpreted with caution. eGFR Result Interpretation:eGFR > or = 60 is in the Normal RangeeGFR < 60 may mean kidney diseaseeGFR < 15 may mean kidney failure Ranges recommended by the National Kidney Foundation, http://nkdep.nih.gov Complete Blood Count with [id number] 14:16:08* Test Item Value Reference Range Interpretation Comments WBC (test code = WBC) 7.0 x10 4.4-10.5 RBC (test code = RBC) 4.92 x10 3.75-5.20 Hgb (test code = Hgb) 12.8 g/dL 12.2-14.8 MCV (test code = MCV) 82.50 fL 80.00-100.00 Hct (test code = Hct) 40.6 % 36.5-44.4 MCHC (test code = MCHC) 31.50 g/dL 32.00-37.50 L RDW CV (test code = RDW CV) 14.3 % 11.5-14.5 MCH (test code = MCH) 26.0 pg 27.0-32.5 L Platelets (test code = Platelets) 362.0 x10 140.0-440.0 MPV (test code = MPV) 10.3 fL N Slide Review (test code = Slide Review) Auto Auto Result created by GL_SJM_SLIDE_REV_AUTO nRBC (test code = nRBC) 0 N NRBC Abs (test code = NRBC Abs) 0.00 x10 N IPF (test code = IPF) 0 % N Automated [id number] 14:16:08* Test Item Value Reference Range Interpretation Comments Neutro Auto (test code = Neutro Auto) 54.1 % 36.0-70.0 Lymph Auto (test code = Lymph Auto) 33.5 % 12.0-44.0 Bowman Auto (test code = Bowman Auto) 9.6 % 0.0-11.0 Eos, Auto (test code = Eos, Auto) 2.4 % 0.0-7.0 Basophil Auto (test code = Basophil Auto) 0.3 % 0.0-2.0 Neutro Absolute (test code = Neutro Absolute) 3.8 x10 1.6-7.4 Lymph Absolute (test code = Lymph Absolute) 2.35 x10 .50-4.60 Bowman Absolute (test code = Bowman Absolute) .67 x10 .00-1.20 Eos Absolute (test code = Eos Absolute) 0.17 x10 0.00-0.74 Baso Absolute (test code = Baso Absolute) 0.02 x10 0.00-0.21 IG [id number] 14:16:08* Test Item Value Reference Range Interpretation Comments IG (test code = IG) 0.1 % 0.0-5.0 IG Abs (test code = IG Abs) 0 x10 N POC [id number] 14:03:16* Test Item Value Reference Range Interpretation Comments Glucose POC (test code = Glucose POC) 98 mg/dL 70-115 If you consider your patient critically ill, the Joaquin-Accu Check Infrom II meter should not be used for Glucose determination. Draw a venous Glucose and send to the main Lab for analysis. CT Stroke Protocol [id number] 13:52:43Patient: JOY MORIN Date/Time04/02/2019 13:49 CDTReason for ExamDizzinessReportCT SCAN OF THE HEAD WITHOUT CONTRASTCLINICAL HISTORY: Dizziness. Code strokeLOCATION R 16TECHNIQUE: Helical CT was performed from the skull base to the vertex without IV contrast and provided at 5 mm slice thickness. Coronal and sagittal reconstruction provided. Axial images provided in bone windows as well. One or more the following dose reduction techniques is utilized: Use of iterative reconstruction, automated exposure control, adjustment of the mAs and Kv for the patient's weight. DLP 765.5 mGy- cm.FINDINGS:There is no CT evidence of acute infarct. No intra or extra-axial hemorrhage or fluid collections. No midline shift or mass effect. Posterior fossa contents are intact.Visualized orbits, paranasal sinus and mastoid air s paces appear within normal limits. Calvarium is intact.IMPRESSION:No acute intra cranial findings.A Critical Direct Communication message has been discussed with Luigi Ramirez in the [employer] Critical Result system on 04/02/2019 1: 52 PM, Message ID [id number]. 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 Comparison studies: CT head report 10/04/2013 Technique: Axia l images were obtained from the skull base to the vertex. Coronal and sagitt al reconstructions obtained from the axial data. Dose modulation, iterative re construction, and/or weight based adjustment of the mA/kV was utilized to redu ce the radiation dose to as low as reasonably achievable. Findings: Scalp/skull: No abnormalities. No fractures, blastic or lytic lesions. E xtra-axial spaces: No masses. No fluid collections. Brain sulci: Approp riate for age. Ventricles: Normal in size and configuration. No hydrocephalus. Parenchyma: No abnormal densities. No masses, hemorrhage, acute or c hronic cortical vascular insults. Sellar/suprasellar region: No abnormaliti es Craniocervical junction: Patent foramen magnum. No Chiari one malformation . IMPRESSION: No abnormalities . Signed by: DR Edi moctezuma M.D. 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 Elec tronically Signed by Ronaldo Serrato MD on 019 at 0803 Reported and signed by: Ronaldo Serrato MD CC: Brian Ascencio MD Technologist: Patricia Bird(R) Transcribed D/ (0803) [facility] NAME: JOY MORIN [address] [facility] PHYS: [id number] - Brian Ascencio : 1960 AGE: 57 SEX: F [place], [place] [address] LOC: Y.MRI PHONE #: EXAM DATE: 08/10/2018 STATUS: DEP CLI FAX #: [phone] RAD #: D/C DT PAGE 1 Signed Report Patient Name: JOY MORIN Unit No: [id number] EXAMS: CPT CODE: [id number] MRI LW JNT W/[place] [address] <Continued> Orig Print D/T: S: 08/13/2018 (0807) [facility] NAME: JOY MORIN [address] [facility] PHYS: [id number] - Brian Ascencio : 1960 AGE: 57 SEX: F [place], [place] [address] LOC: Y.MRI PHONE #: [phone] EXAM DATE: 08/10/2018 STATUS: DEP CLI FAX #: [phone] RAD #: D/C DT PAGE 2 Signed Report
--- OUTSIDE RECORDS SUMMARY | 2020-02-18 09:00 | XMS REPORT | Clinical Summary ---
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
--- NOTE | 2020-02-18 09:28 | Emergency Department Note ---
History of Present Illnes History of Present Illness Chief Complaint: General Medicine Complaints History of Present Illness This is a 59 year old female pt c/o swelling to the right side of the mouth, pt states that she has an appointment with her dentist on Monday for possible extraction of the right molar but states that she has an infection on the same tooth that is broken and possibly have an abscess, pt states a pain level of 10/10 in triage, vital signs WNL. 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 Any updates have been documented here. Past Medical History Recent Fever: No Clinical Suspicion of Infectio: Yes New/Unexplained Change in Ment: No Past Medical History: TIA, Hypothyroidism, Migraines Past Surgical History: Cholecysctectomy, Hysterectomy Other Surgery: X 2, CARPAL TUNNEL Social History Smoking Cessation: Never Smoker Counseling Performed: No Alcohol Use: None Any Illegal Drug Use: No TB Exposure/Symptoms: No Physically hurt or threatened: No Family History Family history of heart diseas: No Other Last Tetanus: UNK Any Pre-Existing Lines (PICC,: No Review of Systems Review of Systems Constitutional: Reports no symptoms EENTM: Reports as per HPI Cardiovascular: Reports no symptoms Respiratory: Reports no symptoms Gastrointestinal: Reports no symptoms Genitourinary: Reports no symptoms Musculoskeletal: Reports no symptoms Integumentary: Reports no symptoms Neurological: Reports no symptoms Psychological: Reports no symptoms Endocrine: Reports no symptoms Hematological/Lymphatic: Reports no symptoms Physical Exam Related Data Allergies: Coded Allergies: Sulfa (Sulfonamide Antibiotics) (Verified Allergy, Mild, 10/05/18) vancomycin (Verified Allergy, Mild, HEAD ITCHING, 10/05/18) codeine (Verified Allergy, Unknown, 11/07/16) Triage Vital Signs Vital Signs Date Time Temp Pulse Resp B/P (MAP) Pulse Ox O2 Delivery O2 Flow Rate FiO2 02/18/20 08:49 98.4 81 18 147/77 100 Room Air Vital signs reviewed: Yes Physical Exam CONSTITUTIONAL Constitutional: Present well-developed, Present well-nourished HENT HENT: Present atraumatic, Present oropharynx clear/moist, Present oropharynx normal, Present dental caries (widespread, tooth number 29 severely decayed and broken with OTC amalgum on it (no exposed dentin), tender to tap, tooth 30 is gone, tooth 31 severely decayed but not as tender as #29), Present other (mild right mandibular swelling lateral to tooth number 29, tender, not below angle of jaw) HENT L/R: Present left ext ear normal, Present right ext ear normal EYES Eyes: Reports PERRL, Reports conjunctivae normal NECK Neck: Present ROM normal PULMONARY Pulmonary: Present effort normal, Present breath sounds normal CARDIOVASCULAR Cardiovascular: Present regular rhythm, Present heart sounds normal, Present capillary refill normal, Present normal rate GASTROINTESTINAL Abdominal: Present soft, Present nontender, Present bowel sounds normal GENITOURINARY Genitourinary: Present exam deferred SKIN Skin: Present warm, Present dry MUSCULOSKELETAL Musculoskeletal: Present ROM normal NEUROLOGICAL Neurological: Present alert, Present oriented x 3, Present no gross motor or sensory deficits PSYCHOLOGICAL Psychological: Present mood/affect normal, Present judgement normal Assessment & Plan Medical Decision Making MDM dental infection with facial swelling - will give Clinda 600 IM, DC with Clinda 300 qid. Pt does not want anything other than Ibuprofen for pain due to allergies Reassessment Reassessment dc home, Clindamycin 300 po QID x 10 days, Ibuprofen 800 TID prn, F/U dentist SAFIA Assessment & Plan Final Impression: (1) Pain due to dental caries (2) Periapical abscess Depart Disposition: HOME, SELF-CARE Last Vital Signs Date Time Temp Pulse Resp B/P (MAP) Pulse Ox O2 Delivery O2 Flow Rate FiO2 02/18/20 09:02 98.1 82 18 142/75 99 Room Air Home Meds Reported Medications Tramadol Hcl (ULTRAM) 50 Mg Tablet, 50 MG PO Q8H, TAB 11/07/16 Clindamycin Hcl (CLEOCIN HCL) 150 Mg Capsule, 600 MG PO Q8H, CAP 11/07/16 Cephalexin Monohydrate (KEFLEX) 500 Mg Capsule, 500 MG PO Q6H 11/07/16 Aspirin (ASPIR 81) 81 Mg Tablet.dr, 81 MG PO DAILY 10/05/13 Levothyroxine Sodium (SYNTHROID) 150 Mcg Tablet, 150 MCG PO DAILY 10/04/13 Medications in the ED Clindamycin Phosphate 600 mg ONCE IM Last administered on 02/18/20at 09:05; Admin Dose 600 MG; Start 02/18/20 at 09:00; Stop 02/18/20 at 10:59 MOLLY MANNING MD Feb 18, 2020 09:28
== END 2020-02-18 09:29 | disposition home or self-care (01) ==
LOC: ER 08:50
DX: K02.9 Dental caries, unspecified (principal); K04.7 Periapical abscess without sinus; E03.9 Hypothyroidism, unspecified; Z86.73 Personal history of transient ischemic attack (TIA), and cerebral infarction without residual deficits
CPT/HCPCS: 99283